=== PATIENT | male | born 1950 | race Two or more races ===

== ENCOUNTER 2018-06-24 15:36 | Emergency (ER) | payer MEDICARE, MEDICAID ==
[~2018-06-24] VITALS: Ht 177.8 cm; Wt 91.0 kg
[2018-06-24 15:59] VITALS: BP 155/64
== END 2018-06-24 18:45 | disposition home or self-care (01) ==
LOC: ER 15:36
DX: I10 Essential (primary) hypertension (principal); Z76.0 Encounter for issue of repeat prescription; J32.9 Chronic sinusitis, unspecified
CPT/HCPCS: 99282